=== PATIENT | female | born 1965 ===

== ENCOUNTER 2024-05-26 18:10 | Inpatient (IN) | payer OTHER ==
[~2024-05-26] VITALS: Ht 170.2 cm; Wt 63.1 kg
[2024-05-26 18:56] LABS: BASOPHILS ABSOLUTE AUTO 0.03 K/mm3 (0.00-0.23); BASOPHILS PERCENT AUTO 0 % (0-2); EOSINOPHILS PERCENT AUTO 0 % (0-6); Hematocrit 41.4 % (33.0-51.0); Hemoglobin 14.1 g/dL (11.5-16.0); IMMATURE GRAN ABSOLUTE AUTO 0.04 K/mm3 (0.00-0.10); IMMATURE GRAN PERCENT AUTO 0 % (0-1); LYMPHOCYTES ABSOLUTE AUTO 0.87 K/mm3 (0.84-5.20); LYMPHOCYTES PERCENT AUTO 8 % (21-46); MONOCYTES ABSOLUTE AUTO 1.39 K/mm3 (0.16-1.47); MONOCYTES PERCENT AUTO 13 % (4-13); Mean Corpuscular HGB 30.2 pg (26.0-34.0); Mean Corpuscular HGB Conc 34.1 g/dL (31.5-36.5); Mean Corpuscular Volume 89 fL (80-100); Mean Platelet Volume 11.8 fL (9.1-12.4); NEUTROPHILS ABSOLUTE AUTO 8.66 K/mm3 (1.96-9.15); NEUTROPHILS PERCENT AUTO 79 % (41-73); Platelet Count 188 K/mm3 (150-400); RDW Coefficient Variation 12.1 % (11.7-14.2); RDW Standard Deviation 39.1 fL (35.1-46.3); Red Blood Cell Count 4.67 M/mm3 (3.80-5.20); White Blood Cell Count 10.99 K/mm3 (4.00-11.30)
[2024-05-26 19:19] LABS: Albumin, Blood 3.8 g/dL (3.4-5.0); Albumin/Globulin Ratio 0.8 (0.8-1.8); Bilirubin, Total 1.4 mg/dL (0.1-1.0); Bun/Creatinine Ratio 17.8 (12.0-20.0); Calcium, Blood 9.4 mg/dL (8.5-10.1); Creatinine, Blood 0.85 mg/dL (0.40-1.00); Globulin, Blood 4.5 g/dL (2.2-4.0); Potassium, Blood 3.8 mmol/L (3.5-5.5); Total Protein, Blood 8.3 g/dL (6.4-8.2)
[2024-05-26 19:19] LABS: Influenza A, PCR NEGATIVE (NEGATIVE); Influenza B, PCR NEGATIVE (NEGATIVE); Resp Syncytial Virus, PCR NEGATIVE (NEGATIVE); SARS-Cov-2 (COVID-19) PCR, MMC NEGATIVE (NEGATIVE)
[2024-05-26] MEDS ORDERED: Acetaminophen 325 MG TABLET PO ONE (20:20)
[2024-05-26] MEDS ORDERED: ACET500 PO (22:26)
[2024-05-26] MEDS ORDERED: Ketorolac Tromethamine 30mg Vial IV ONE (23:15)
[2024-05-26 23:44] LABS: C-REACTIVE PROTEIN, EXT RANGE 7.68 mg/dL (0.000-0.300)
[2024-05-27 00:08] LABS: Source, Urine Clean Catch
[2024-05-27 00:13] LABS: Bilirubin, Urine Neg (Neg); Blood, Urine Neg (Neg); Glucose Qualitative, Urine Neg (Neg); Ketones, Urine 1+ (Neg); Leukocyte Esterase, Urine 1+ (Neg); Nitrite, Urine Neg (Neg); Protein, Urine 2+ (Neg); Specific Gravity, Urine 1.025 (1.003-1.022); Urobilinogen, Urine 1+ (Normal)
[2024-05-27 00:22] LABS: Appearance, Urine Hazy (Clear); Color, Urine Yellow (P-Yellow)
[2024-05-27 00:24] LABS: Amorphous Light (0-Heavy); Bacteria Mod /hpf; Mucus Mod (0-Heavy); Red Blood Cells, Urine Not Seen /hpf (0-2); Squamous Epithelial Cells Few /hpf (Few)
[2024-05-27] MEDS ORDERED: Piperacillin/Tazobactam Sod 4.5 GM in NS 100 ML IV ONE (01:05)
[2024-05-27] MEDS ORDERED: Vancomycin HCL 1,500 MG in NS 250 ML IV ONE (01:10)
[2024-05-27] MEDS ORDERED: Acetaminophen 325 MG TABLET PO PRN (01:30)
[2024-05-27] MEDS ORDERED: Ondansetron HCl 2 MG / ML 2ML Vial IV PRN (01:30)
[2024-05-27] MEDS ORDERED: FentaNYL Citrate 50 MCG/ML 2 ML Injection IV PRN (01:30)
[2024-05-27] MEDS ORDERED: NS 1,000 ML IV ONE (01:45)
[2024-05-27] MEDS ORDERED: Ketorolac Tromethamine 30mg Vial IV PRN (01:55)
[2024-05-27 04:06] LABS: BASOPHILS ABSOLUTE AUTO 0.03 K/mm3 (0.00-0.23); BASOPHILS PERCENT AUTO 0 % (0-2); EOSINOPHILS ABSOLUTE AUTO 0.03 K/mm3 (0.00-0.68); EOSINOPHILS PERCENT AUTO 0 % (0-6); Hematocrit 38.5 % (33.0-51.0); Hemoglobin 12.8 g/dL (11.5-16.0); IMMATURE GRAN ABSOLUTE AUTO 0.03 K/mm3 (0.00-0.10); IMMATURE GRAN PERCENT AUTO 0 % (0-1); LYMPHOCYTES ABSOLUTE AUTO 1.24 K/mm3 (0.84-5.20); LYMPHOCYTES PERCENT AUTO 17 % (21-46); MONOCYTES ABSOLUTE AUTO 1.11 K/mm3 (0.16-1.47); MONOCYTES PERCENT AUTO 16 % (4-13); Mean Corpuscular HGB Conc 33.2 g/dL (31.5-36.5); Mean Corpuscular Volume 90 fL (80-100); Mean Platelet Volume 11.8 fL (9.1-12.4); NEUTROPHILS PERCENT AUTO 66 % (41-73); Platelet Count 153 K/mm3 (150-400); RDW Coefficient Variation 12.2 % (11.7-14.2); RDW Standard Deviation 40.1 fL (35.1-46.3); Red Blood Cell Count 4.26 M/mm3 (3.80-5.20); White Blood Cell Count 7.14 K/mm3 (4.00-11.30)
[2024-05-27 04:33] LABS: Albumin, Blood 3.1 g/dL (3.4-5.0); Albumin/Globulin Ratio 0.8 (0.8-1.8); Bilirubin, Total 1.6 mg/dL (0.1-1.0); Calcium, Blood 8.9 mg/dL (8.5-10.1); Creatinine, Blood 0.9 mg/dL (0.40-1.00); Potassium, Blood 3.6 mmol/L (3.5-5.5); Total Protein, Blood 7.1 g/dL (6.4-8.2)
[2024-05-27 07:48] VITALS: BP 122/66
[2024-05-27] MEDS ORDERED: Piperacillin/Tazobactam Sod 4.5 GM in NS 100 ML IV SCH (08:00)
[2024-05-27] MEDS ORDERED: NS 250 ML IV PRN (14:50)
[2024-05-27] MEDS ORDERED: Vancomycin HCL 1,000 MG in NS 250 ML IV SCH (15:00)
[2024-05-27 15:58] VITALS: BP 130/75
--- NOTE | 2024-05-27 17:42 | NUR ---
PT REPORTED HIP PAIN AND WAS ADMITTED TO ED. SHE REPORTED TO THIS NURSE THAT SHE FELT BETTER. PHYSICIANS REQUESTED BIOPSY OF HIP BUT PATIENT DECLINED. PATIENT INDEPENDENT. GIVEN VANCOMYOCIN AND ZOYSN FOR INFECTION. 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 CALL LIGHT BY PATIENT.
[2024-05-27 19:58] VITALS: BP 130/69
[2024-05-28 04:41] VITALS: BP 123/83
--- NOTE | 2024-05-28 06:04 | NUR ---
SHIFT SUMMARY PT A&OX3 AND ANSWERS QUESTIONS APPROPRIATELY. PT COMPLAINS OF DISCOMFORT AT IV SITE, IV ASSESSED AND NO SIGNS OF ADVERSE AFFECTS AT THE IV SITE. PT REFUSED NEW PERIPHERAL IV PLACED. PT RECEIVED IV ANTIBIOTICS. VSS, NO COMPLAINTS OF CP/PRESSURE OR SOB. PT SPENT MOST OF SHIFT IN BED WITH EYES CLOSED AND RESPIRATIONS EVEN AND UNLABORED. NO ACUTE EVENTS AT THIS TIME. PT LEFT IN A POSITION OF SAFETY WITH FALL PRECAUTIONS IN PLACE AND CALL LIGHT IN REACH.
[2024-05-28 06:56] VITALS: BP 117/86
--- NOTE | 2024-05-28 08:46 | NUR ---
ASSUMED CARE OF PT- BEDSIDE REPORT COMPLETED WITH NIGHT RN YOSELIN. PER REPORT THE PT IV FLUSHES WELL HOWEVER, THE PT COMPLAINS OF UNBEARABLE PAIN AT THE SITE. WHEN SHE OFFERED TO PLACE A NEW IV THE PT DECLINED SAYING MAYBE THIS ONE WAS OK. AT THE TIME OF SHIFT CHANGE THE PT AGAIN STATES THE IV IS PAINFULL AND SHE HAD REFUSED HER 0600 DOSE OF ANTIBIOTICS. IV WAS NOTED TO BE MILDLY SWOLLEN AND TENDER. DC'D PER PT REQUEST. AFTER IV WAS DC'D THE PT DECLINED TO HAVE A NEW ONE PLACED. CALLED DR HECK, SHE IS AWARE OF THE NO IV ACCESS ISSUE AND IS ORDERING PO ANTIBIOTICS. WILL ADMINISTER ONCE VERIFIED BY PHARMACY.
[2024-05-28] MEDS ORDERED: Trimethoprim/Sulfamethoxazole DS Tab PO SCH (09:00)
[2024-05-28] MEDS ORDERED: VISBIOME 112.51 EACH PO (10:51)
[2024-05-28] MEDS ORDERED: SULTRIDS PO (10:51)
--- NOTE | 2024-05-28 11:22 | NUR ---
DISCHARGE NOTE- PT WAS GIVEN [place]BAL[place] WRITTEN DISCHARGE INSTRUCTIONS AND ACKNOWLEDGED UNDERSTANDING OF THEM. PT WAS ESCORTED OUT VIA WC BY THE 2ND PRESSMAN NO S&S OF DISTRESS NOTED AT THE TIME OF DISCHARGE. TELE DC'D PRIOR TO PT DISCHARGE.
[2024-05-28 11:44] LABS: RA, SEMIQUANTITATIVE 128 IU/ml (<8); Rheumatoid Factor, Serum Positive (Negative)
[2024-05-28 22:27] LABS: ANTI-NUCLEAR AB ANA,IGG ELISA None Detected (None Detected)
== END 2024-05-28 11:19 | disposition home or self-care (01) | DRG 872 ==
LOC: ER 18:10 → ERHOLD 05-27 01:26 → MEDS 05-27 07:52
PROVIDERS: Internal Medicine; Student in an Organized Health Care Education/Training Program; ADMIT Internal Medicine
DX: A41.9 Sepsis, unspecified organism (principal); M00.9 Pyogenic arthritis, unspecified; Z79.899 Other long term (current) drug therapy; Z88.1 Allergy status to other antibiotic agents; M25.551 Pain in right hip
CPT/HCPCS: 0241U; 36415; 73502; 76882; 80053; 81001; 83605; 83880; 85025; 85651; 86038; 86140; 86430; 86431; 87086; 96374; 99285-25; A9270; J1885; J2543; J3370; J7030; J7050